=== PATIENT | male | born 1955 | race African-American/Black ===

== ENCOUNTER 2019-04-26 10:52 | Day surgery (SDC) | payer OTHER ==
[~2019-04-26 10:52] MED LIST: PROPOFOL INJ 200 MG/20 ML VIAL IV ONE
[2019-04-26 12:56] VITALS: BP 124/77
--- NOTE | 2019-04-26 13:55 | Operative Report ---
Operative Report DATE OF SURGERY: 04/26/19 Operative Report: The risks, benefits and alternatives of the procedure including the risk of bleeding, perforation requiring surgery have been explained to the patient in detail and informed consent has been obtained. Patient is taken back to the endoscopy suite and placed in the left, lateral decubital position. Timeout was called. Propofol medication is administered. Rectal examination is done which did not reveal any masses, tears or fissures. An Olympus videoscope was introduced into the patient's rectum. The scope was then carefully advanced all the way to the cecum. Cecum was identified by the usual anatomical landmarks including the ileocecal valve as well as the appendiceal office. Photodocumentation is obtained. Scope was then sequentially pulled back via the rest segments of the colon including the ascending colon, hepatic flexure, transverse colon, splenic flexure, descending colon finding to the rectosigmoid portions of the colon. Retroflexion maneuvers performed. PREOPERATIVE DIAGNOSIS: Personal history of polyp POSTOPERATIVE DIAGNOSIS: Sessile sigmoid polyp noted removed via biopsy forceps. Internal hemorrhoids. Diverticulosis without any evidence of diverticulitis OPERATION: Colonoscopy with biopsy SURGEON: XIAO PETERSON ANESTHESIA: LMAC TISSUE REMOVED OR ALTERED: As noted above. COMPLICATIONS: None. ESTIMATED BLOOD LOSS: None. INTRAOPERATIVE FINDINGS: As noted above. PROCEDURE: Patient tolerated the procedure well. No immediate postprocedure complications are noted. Patient is discharged in good condition. Discharge date 04/26/2019. Discharge diet: Regular. Discharge activity: Regular. 2 to 3-week follow-up to discuss findings. Patient is instructed to call the office or proceed to the emergency room should there be any further problems or questions. Wait on the pathology. 5-year surveillance colonoscopy.
== END 2019-04-26 12:55 | disposition home or self-care (01) ==
LOC: END 10:52
PROVIDERS: ATTEND Internal Medicine Gastroenterology
DX: Z12.11 Encounter for screening for malignant neoplasm of colon (principal); K63.5 Polyp of colon; K57.30 Diverticulosis of large intestine without perforation or abscess without bleeding; K64.8 Other hemorrhoids; Z86.010 Personal history of colon polyps; E78.2 Mixed hyperlipidemia; K21.9 Gastro-esophageal reflux disease without esophagitis; E11.9 Type 2 diabetes mellitus without complications; Z79.84 Long term (current) use of oral hypoglycemic drugs; Z79.899 Other long term (current) drug therapy
CPT/HCPCS: 45380; 82962; 88305 ×2; J2704; 811

== ENCOUNTER 2020-04-17 09:37 | Emergency (ER) | payer BC, OTHER ==
[2020-04-17 09:43] VITALS: BP 128/85
--- NOTE | 2020-04-17 10:08 | ER Document Report ---
HPI - HPI Time Seen by Provider: 04/17/20 10:01 Pain Level: 4 Context: Patient is a 64-year-old male presents emergency department with a chief complaint of rib pain. Patient reports that on Friday, 2 days ago, he fell getting out of the shower. He reports that he fell onto his right side striking the tub. Patient reports he is not on blood thinners. Patient states that he did not hit his head or lose consciousness. Patient denies any neck or back pain. Patient reports that his right rib pain is worse when taking a deep breath, laying down or with movement. Past Medical History - General Information source: Patient - Social History Smoking Status: Never Smoker Frequency of alcohol use: None Drug Abuse: None Lives with: Family Family History: Reviewed & Not Pertinent - Past Medical History Cardiac Medical History: Reports: Hx Hypertension Denies: Hx Coronary Artery Disease, Hx Heart Attack Pulmonary Medical History: Denies: Hx Asthma, Hx Bronchitis, Hx COPD, Hx Pneumonia Neurological Medical History: Denies: Hx Cerebrovascular Accident, Hx Seizures Musculoskeletal Medical History: Denies Hx Arthritis - Immunizations Hx Diphtheria, Pertussis, Tetanus Vaccination: No - UNSURE Vertical Provider Document - CONSTITUTIONAL Agree With Documented VS: Yes Exam Limitations: No Limitations Notes: GENERAL: Well-appearing, well-nourished and in no acute distress. HEAD: Atraumatic, normocephalic. EYES: Pupils equal round and reactive to light, extraocular movements intact, sclera anicteric, conjunctiva are normal. ENT: Moist mucous membranes. NECK: Normal range of motion, supple without lymphadenopathy or JVD. LUNGS: Breath sounds clear to auscultation bilaterally and equal. No wheezes rales or rhonchi. Tenderness to right lateral ribs, no ecchymosis, no crepitus, no deformity. Pain to right lateral rib area with deep breath. HEART: Regular rate and rhythm without murmurs, rubs or gallops. ABDOMEN: Soft, nontender, normoactive bowel sounds. No guarding, no rebound. No masses appreciated. BACK: No cervical, thoracic, lumbar midline tenderness. No saddle anesthesia, normal distal neurovascular exam. GENITOURINARY: Deferred. EXTREMITIES: Normal range of motion, no pitting or edema. No clubbing or cyanosis. NEUROLOGICAL: Cranial nerves II through XII grossly intact. Normal speech, normal gait. PSYCH: Normal mood, normal affect. SKIN: Warm, Dry, normal turgor, no rashes or lesions noted. - INFECTION CONTROL TRAVEL OUTSIDE OF THE [place] IN LAST 30 DAYS: No Course - Vital Signs Vital signs: Temp Pulse Resp BP Pulse Ox 99.0 F 92 16 128/85 H 97 04/17/20 09:41 04/17/20 09:41 04/17/20 09:41 04/17/20 09:41 04/17/20 09:41
--- NOTE | 2020-04-17 11:20 | RADIOLOGY REPORT (SQ) ---
EXAM DESCRIPTION: RIBS RIGHT W/PA CHEST IMAGES COMPLETED DATE/TIME: 04/17/2020 11:01 am REASON FOR STUDY: Fall, right lateral rib pain COMPARISON: None. TECHNIQUE: Frontal view of the chest and additional views of the right ribs acquired. NUMBER OF VIEWS: Four view. LIMITATIONS: None. FINDINGS: FRONTAL CXR: No pneumothorax. No pleural effusion. No atelectasis or infiltrates. [place] tion of the right hemidiaphragm. RIBS: No displaced rib fractures. No lytic or blastic bony lesions. OTHER: No other significant finding. IMPRESSION: NO PNEUMOTHORAX. NO DISPLACED RIB FRACTURES. ELEVATION OF THE RIGHT HEMIDIAPHRAGM. COMMENT: SITE OF TRAUMA/COMPLAINT MARKED/STAMP COMPLETED: NO TECHNICAL DOCUMENTATION: JOB ID: [id number] 2010 [employer]- All Rights Reserved Reading location - IP/workstation name: [email or web address]
--- NOTE | 2020-04-17 12:11 | ER Document Report ---
ED Medical Screen (RME) - General Chief Complaint: Rib Pain Stated Complaint: FELL - RIGHT SIDE PAIN Time Seen by Provider: 04/17/20 10:01 Notes: Patient is a 64-year-old male presents emergency department with a chief complaint of rib pain. Patient reports that on Friday, 2 days ago, he fell getting out of the shower. He reports that he fell onto his right side striking the tub. Patient reports he is not on blood thinners. Patient states that he did not hit his head or lose consciousness. Patient denies any neck or back pain. Patient reports that his right rib pain is worse when taking a deep breath, laying down or with movement. TRAVEL OUTSIDE OF THE [place] IN LAST 30 DAYS: No - Related Data Allergies/Adverse Reactions: No Known Allergies Allergy (Verified 04/26/19 10:47) Past Medical History - Social History Frequency of alcohol use: None - Past Medical History Cardiac Medical History: Reports: Hx Hypertension Denies: Hx Coronary Artery Disease, Hx Heart Attack Pulmonary Medical History: Denies: Hx Asthma, Hx Bronchitis, Hx COPD, Hx Pneumonia Neurological Medical History: Denies: Hx Cerebrovascular Accident, Hx Seizures Musculoskeltal Medical History: Denies Hx Arthritis - Immunizations Hx Diphtheria, Pertussis, Tetanus Vaccination: No - UNSURE Physical Exam - Vital signs Vitals: Temp Pulse Resp BP Pulse Ox 99.0 F 92 16 128/85 H 97 04/17/20 09:41 04/17/20 09:41 04/17/20 09:41 04/17/20 09:41 04/17/20 09:41 - Respiratory Respiratory status: No respiratory distress Chest status: Tender Notes: Right lateral chest wall tenderness to palpation, no bruising or crepitus. Course - Re-evaluation Re-evalutation: 04/17/20 12:10 X-ray did show no rib fractures. It was noted that the patient had a right elevated hemo-diaphragm. I did discuss the case with Dr. Lay who recommends obtaining a CT of the chest and abdomen due to trauma. There is no previous x- ray for correlation. Patient was updated on findings of x-ray and was aware that blood work and CT will be ordered. - Vital Signs Vital signs: Temp Pulse Resp BP Pulse Ox 99.0 F 92 16 128/85 H 97 04/17/20 09:41 04/17/20 09:41 04/17/20 09:41 04/17/20 09:41 04/17/20 09:41 - Diagnostic Test Radiology reviewed: Reports reviewed Radiology results interpreted by me: 04/17/20 12:11 Ribs w/Chest X-Ray 04/17/20 10:05 IMPRESSION: NO PNEUMOTHORAX. NO DISPLACED RIB FRACTURES. ELEVATION OF THE RIGHT HEMIDIAPHRAGM.
[2020-04-17 12:46] LABS: ABSOLUTE BASOPHILS # (AUTO) 0.1 10^3/uL (0.0-0.2); ABSOLUTE EOSINOPHILS # (AUTO) 0.1 10^3/uL (0.0-0.6); ABSOLUTE LYMPHOCYTES (AUTO) 2.2 10^3/uL (0.5-4.7); ABSOLUTE MONOCYTES (AUTO) 1.1 10^3/uL (0.1-1.4); ABSOLUTE NEUT (AUTO) 8.7 10^3/uL (1.7-8.2); EOSINOPHILS % (AUTO) 0.5 % (0-6); HEMATOCRIT 41.9 % (37.9-51.0); HEMOGLOBIN 13.7 g/dL (13.5-17.0); LYMPHOCYTES % (AUTO) 18.1 % (13-45); MEAN CORPUSCULAR HEMOGLOBIN 27.1 pg (27.0-33.4); MEAN CORPUSCULAR HGB CONC 32.6 g/dL (32.0-36.0); MEAN CORPUSCULAR VOLUME 83 fl (80-97); PLATELET COUNT 380 10^3/uL (150-450); RED BLOOD COUNT 5.04 10^6/uL (4.35-5.55); RED CELL DISTRIBUTION WIDTH 15.4 % (11.5-14.0); SEGMENTED NEUTROPHILS % (AUTO) 71.4 % (42-78); TOTAL CELLS COUNTED % (AUTO) 100 %; WHITE BLOOD COUNT 12.2 10^3/uL (4.0-10.5)
[2020-04-17 13:22] LABS: ALBUMIN 4.5 g/dL (3.5-5.0); ALKALINE PHOSPHATASE 66 U/L (38-126); ANION GAP 9 (5-19); ASPARTATE AMINO TRANSFERASE 22 U/L (17-59); BILIRUBIN,DIRECT 0.3 mg/dL (0.0-0.4); BILIRUBIN,TOTAL 0.5 mg/dL (0.2-1.3); BLOOD UREA NITROGEN 19 mg/dL (7-20); CALCIUM 9.8 mg/dL (8.4-10.2); CARBON DIOXIDE 28 mmol/L (22-30); CHLORIDE 102 mmol/L (98-107); GLUCOSE 133 mg/dL (75-110)
--- NOTE | 2020-04-17 14:12 | RADIOLOGY REPORT (SQ) ---
EXAM DESCRIPTION: CT ABD/PELVIS WITH IV ONLY IMAGES COMPLETED DATE/TIME: 04/17/2020 1:48 pm REASON FOR STUDY: Trauma right ribs COMPARISON: None. TECHNIQUE: CT scan of the abdomen and pelvis performed using helical scanning technique with dynamic intravenous contrast injection. No oral contrast. Images reviewed with lung, soft tissue, and bone windows. Reconstructed coronal and sagittal MPR images reviewed. Delayed images for evaluation of the urinary system also acquired. All images stored on PACS. All CT scanners at this facility use dose modulation, iterative reconstruction, and/or weight based d osing when appropriate to reduce radiation dose to as low as reasonably achievable (ALARA). [facility]: Dose Right [facility]: CareDose [facility]: Dose Right [facility]: Teradose 4D [facility]: [employer] CONTRAST TYPE AND DOSE: 100 cc Omnipaque 350 RENAL FUNCTION: Creatinine 1.39 RADIATION DOSE: . LIMITATIONS: None. FINDINGS: LOWER CHEST: See separate report of the CT of the chest. LIVER: Normal size. No masses. No dilated ducts. SPLEEN: Normal size. No focal lesions. PANCREAS: No masses. No significant calcifications. No adjacent inflammation or peripancreatic fluid collections. Pancreatic duct not dilated. GALLBLADDER: No identified stones by CT criteria. No inflammatory changes to suggest cholecystitis. ADRENAL GLANDS: No significant masses or asymmetry. RIGHT KIDNEY AND URETER: No solid masses. No significant calcifications. No hydronephrosis or hyd roureter. LEFT KIDNEY AND URETER: No solid masses. No significant calcifications. No hydronephrosis or hydr oureter. AORTA AND VESSELS: No aneurysm. No dissection. Renal arteries, SMA, celiac without stenosis. RETROPERITONEUM: No retroperitoneal adenopathy, hemorrhage or masses. BOWEL AND PERITONEAL CAVITY: No evidence of intestinal obstruction. No focal bowel wall thickening. Scattered colonic diverticula. Moderate formed stool throughout the colon. APPENDIX: Normal. PELVIS: Prostatomegaly measuring 5.2 cm transversely. ABDOMINAL WALL: Small fat containing umbilical hernia. No subcutaneous mass. BONES: Posterior right 10th rib fracture. No other acute bony abnormality. No suspicious lytic or b lastic osseous lesions. Lower lumbar facet arthropathy. OTHER: No other significant finding. IMPRESSION: Posterior right 10th rib fracture. No evidence of acute intra-abdominal/pelvic process . Please see same-day chest CT for findings above the diaphragm. TECHNICAL DOCUMENTATION: JOB ID: [id number] Quality ID # [id number]: Final reports with documentation of one or more dose reduction techniques (e.g., Au tomated exposure control, adjustment of the mA and/or kV according to patient size, use of iterative reconstruction technique) 2010 [employer]- All Rights Reserved Reading location - IP/workstation name: [email or web address]
--- NOTE | 2020-04-17 14:18 | RADIOLOGY REPORT (SQ) ---
EXAM DESCRIPTION: CT CHEST WITH IMAGES COMPLETED DATE/TIME: 04/17/2020 1:48 pm REASON FOR STUDY: Trauma right ribs COMPARISON: Same day radiograph TECHNIQUE: CT scan of the chest performed using helical scanning technique with dynamic intravenous contrast injection. Images reviewed with lung, soft tissue and bone windows. Reconstructed coronal and sagittal MPR and MIP images reviewed. All images stored on PACS. All CT scanners at this facility use dose modulation, iterative reconstruction, and/or weight based d osing when appropriate to reduce radiation dose to as low as reasonably achievable (ALARA). [facility]: Dose Right [facility]: CareDose [facility]: Dose Right [facility]: Teradose 4D [facility]: Network CONTRAST TYPE AND DOSE: contrast/concentration: Isovue 350.00 mmol/ml; Total Contrast Delivered: 100 .0 ml; Total Saline Delivered: 64.7 ml RENAL FUNCTION: See abdomen RADIATION DOSE: CT Rad equipment meets quality standard of care and radiation dose reduction techniq ues were employed. CTDIvol: 22.3 - 27.8 mGy. DLP: 4001 mGy-cm. . LIMITATIONS: None. FINDINGS: LUNGS AND PLEURA: No opacities, nodules, masses. No pneumothorax. No effusions. HILAR AND MEDIASTINAL STRUCTURES: No identified masses or abnormal nodes. HEART AND VASCULAR STRUCTURES: No aneurysm or dissection. No central pulmonary emboli. No pericardi al effusion. HARDWARE: None in the chest. UPPER ABDOMEN: See separate report of the CT of the abdomen. THYROID AND OTHER SOFT TISSUES: No masses. No adenopathy. BONES: Posterior 9 side rib fracture. No other evidence of acute bony abnormality. OTHER: No other significant finding. IMPRESSION: Posterior 9th right rib fracture. No pneumothorax or other evidence of acute intrathora cic process. . TECHNICAL DOCUMENTATION: JOB ID: [id number] Quality ID # [id number]: Final reports with documentation of one or more dose reduction techniques (e.g., Au tomated exposure control, adjustment of the mA and/or kV according to patient size, use of iterative reconstruction technique) 2010 [employer]- All Rights Reserved Reading location - IP/workstation name: [email or web address]
--- NOTE | 2020-04-17 15:11 | ER Document Report ---
ED General - General Chief Complaint: Rib Pain Stated Complaint: FELL - RIGHT SIDE PAIN Time Seen by Provider: 04/17/20 10:01 Primary Care Provider: LUCIO RUIZ DO [Primary Care Provider] - Follow up as needed Mode of Arrival: Ambulatory Information source: Patient TRAVEL OUTSIDE OF THE [place] IN LAST 30 DAYS: No - HPI Notes: Patient presents with right-sided lower chest and upper abdominal pain. He states 2 days ago he fell in his bathtub landed on his right side. He states since that time his pain is been constant. He states it is worse with movement such as coughing and better with rest. It does radiate up and down the right side. It is moderate to severe. It is sharp. Patient has had no fevers. No increase of cough. No new shortness of breath. He has had no abdominal symptoms other than pain. So no vomiting diarrhea or nausea. - Related Data Allergies/Adverse Reactions: No Known Allergies Allergy (Verified 04/26/19 10:47) Past Medical History - General Information source: Patient - Social History Smoking Status: Never Smoker Frequency of alcohol use: None Drug Abuse: None Family History: Reviewed & Not Pertinent - Past Medical History Cardiac Medical History: Reports: Hx Hypertension Denies: Hx Coronary Artery Disease, Hx Heart Attack Pulmonary Medical History: Denies: Hx Asthma, Hx Bronchitis, Hx COPD, Hx Pneumonia Neurological Medical History: Denies: Hx Cerebrovascular Accident, Hx Seizures Musculoskeletal Medical History: Denies Hx Arthritis - Immunizations Hx Diphtheria, Pertussis, Tetanus Vaccination: No - UNSURE Review of Systems - Review of Systems Constitutional: denies: Chills, Fever Cardiovascular: Chest pain. denies: Palpitations Respiratory: denies: Cough, Short of breath -: Yes All other systems reviewed and negative Physical Exam - Vital signs Vitals: Temp Pulse Resp BP Pulse Ox 99.0 F 92 16 128/85 H 97 04/17/20 09:41 04/17/20 09:41 04/17/20 09:41 04/17/20 09:41 04/17/20 09:41 Interpretation: Normal - General General appearance: Appears well, Alert - HEENT Head: Normocephalic, Atraumatic Eyes: Normal Pupils: PERRL - Respiratory Respiratory status: No respiratory distress Chest status: Tender Breath sounds: Normal Chest palpation: Tender - Patient's right chest wall is tender but there is no crepitus. - Cardiovascular Rhythm: Regular Heart sounds: Normal auscultation Murmur: No - Abdominal Inspection: Normal Distension: No distension Bowel sounds: Normal Tenderness: Nontender Organomegaly: No organomegaly - Back Back: Normal, Nontender - Extremities General upper extremity: Normal inspection, Nontender, Normal color, Normal ROM, Normal temperature General lower extremity: Normal inspection, Nontender, Normal color, Normal ROM, Normal temperature, Normal weight bearing. No: Damion's sign - Neurological Neuro grossly intact: Yes Cognition: Normal Orientation: AAOx4 Gio Coma Scale Eye Opening: Spontaneous Gio Coma Scale Verbal: Oriented [place] Coma Scale Motor: Obeys Commands Gio Coma Scale Total: 15 Speech: Normal Motor strength normal: LUE, RUE, LLE, RLE Sensory: Normal - Psychological Associated symptoms: Normal affect, Normal mood - Skin Skin Temperature: Warm Skin Moisture: Dry Skin Color: Normal Course - Re-evaluation Re-evalutation: 04/17/20 15:05 Patient presents with right-sided chest pain. He is tender to palpation. He does have a history of trauma [address] scan shows rib fractures of the ninth and 10th ribs. No intra-abdominal or intrathoracic injuries. - Vital Signs Vital signs: Temp Pulse Resp BP Pulse Ox 99.0 F 92 16 128/85 H 97 04/17/20 09:41 04/17/20 09:41 04/17/20 09:41 04/17/20 09:41 04/17/20 09:41 - Laboratory Result Diagrams: 04/17/20 12:17 04/17/20 12:17 Laboratory results interpreted by me: 04/17/20 04/17/20 12:17 12:17 WBC 12.2 H RDW 15.4 H Absolute Neuts (auto) 8.7 H Creatinine 1.39 H Est GFR (MDRD) Non-Af 51 L Glucose 133 H - Diagnostic Test Radiology reviewed: Image reviewed, Reports reviewed Discharge - Discharge Clinical Impression: Rib fracture Qualifiers: Encounter type: initial encounter Rib fracture type: multiple ribs Fracture type: closed Laterality: right Qualified Code(s): S22.41XA - Multiple fractures of ribs, right side, initial encounter for closed fracture Condition: Stable Disposition: HOME, SELF-CARE Instructions: Rib Injuries and Fractures ([facility]) Prescriptions: Hydrocodone/Acetaminophen [Spencer 5-325 mg Tablet] 1 tab PO Q6 PRN 3 Days #12 tablet PRN Reason: For Pain Forms: Return to Work Referrals: LUCIO RUIZ DO [Primary Care Provider] - Follow up in 3-5 days
== END 2020-04-17 15:55 | disposition home or self-care (01) ==
LOC: ER 09:37
DX: S22.41XA Multiple fractures of ribs, right side, initial encounter for closed fracture (principal); R10.10 Upper abdominal pain, unspecified; W18.2XXA Fall in (into) shower or empty bathtub, initial encounter; Y93.89 Activity, other specified; I10 Essential (primary) hypertension
CPT/HCPCS: 36415; 71260; 74177; 80053; 85025; 99285